=== PATIENT | female | born 1970 | race African-American/Black ===

== ENCOUNTER 2023-07-08 13:01 | Emergency (ER) | payer OTHER ==
[~2023-07-08] VITALS: Ht 152.4 cm; Wt 72.0 kg
[2023-07-08 13:06] VITALS: BP 215/120; PULSE 99; RESP 20; TEMP 98.5; O2SAT 99
[2023-07-08 14:07] LABS: BASOPHILS % 1.1 % (0.0-2.0); EOSINOPHILS % 3.1 % (0.0-5.0); HEMOGLOBIN. 15.4 g/dL (12.0-16.0); LYMPHOCYTES % 29.9 % (20.0-50.0); MEAN CORPUSCULAR HEMOGLOBIN 30.4 pg (28.0-32.0); MEAN CORPUSCULAR HGB CONC 34.1 g/dL (31.0-37.0); MEAN CORPUSCULAR VOLUME 89.2 fL (81.0-99.0); MEAN PLATELET VOLUME 7.5 fl (7.4-10.4); MONOCYTES % 4.3 % (2.0-8.0); NEUTROPHILS % 61.6 % (40.0-76.0); PLATELET 281 x1000/uL (130-400); RED BLOOD CELL COUNT 5.05 mill/uL (4.2-5.4); RED CELL DISTRIBUTION WIDTH 12.7 % (11.6-14.6); WHITE BLOOD COUNT 8.5 x1000/uL (4.5-11.0)
[2023-07-08 14:47] LABS: ALANINE AMINOTRANSFERASE 23 IU/L (10-49); ALBUMIN 4.7 g/dL (3.2-4.8); ASPARTATE AMINOTRANSFERASE 20 IU/L (<34); BILIRUBIN TOTAL 0.5 mg/dL (0.1-1.0); CALCIUM 9.5 mg/dL (8.7-10.4); CARBON DIOXIDE 23 mEq/L (21-32); CHLORIDE 107 mEq/L (98-107); CREATININE 0.8 mg/dL (0.6-1.0); GLUCOSE 93 mg/dL (70-105); POTASSIUM 4.4 mEq/L (3.5-5.1); PROTEIN TOTAL 8.2 g/dL (6.0-8.3); SODIUM 138 mEq/L (136-145); UREA NITROGEN BLOOD 13 mg/dL (9-23)
== END 2023-07-08 18:58 | disposition left against medical advice (07) ==
LOC: ER 13:01
DX: R56.9 Unspecified convulsions (principal); Z53.21 Procedure and treatment not carried out due to patient leaving prior to being seen by health care provider
CPT/HCPCS: 36415; 80053; 85025; 93005; 99281

== ENCOUNTER 2023-09-09 18:05 | Emergency (ER) | payer OTHER ==
[~2023-09-09] VITALS: Ht 157.5 cm; Wt 77.0 kg
[2023-09-09 18:25] VITALS: BP 121/76; PULSE 78; RESP 16; O2SAT 99
[2023-09-09] MEDS: LEVETIRACETAM 500MG PREMIX 100 ML IV ONE ×2 (19:11→19:21)
[2023-09-09] MEDS: LORAZEPAM 2MG/ML INJ IV NR (19:46)
[2023-09-09] MEDS ORDERED: AMOX1TAB16 MT (19:46)
== END 2023-09-09 20:23 | disposition left against medical advice (07) ==
LOC: ER 18:05
DX: J32.9 Chronic sinusitis, unspecified (principal); R56.9 Unspecified convulsions; R55 Syncope and collapse; I10 Essential (primary) hypertension; Z98.890 Other specified postprocedural states; Z90.49 Acquired absence of other specified parts of digestive tract
CPT/HCPCS: 71045; 70450; 93005; 96374; 96375; 96376; 99285; J1953; J2060; Z7610 ×2